=== PATIENT | male | born 1980 | race Caucasian/White ===

== ENCOUNTER 2023-05-04 16:08 | Observation (INO) ==
[2023-05-04 16:34] LABS: ABS Basophils 0.1 10^3/uL (0.0-0.1); ABS Eosinophils 0.3 10^3/uL (0.0-0.5); ABS Lymphocytes 3.5 10^3/uL (1.0-4.8); ABS Monocytes 1.1 10^3/uL (0.0-1.1); ABS Neutrophils 6.7 10^3/uL (1.5-7.6); ABS Nucleated RBC 0.01 10^3/ul; Eosinophil % 2.2 %; Hematocrit 44.7 % (38-53); Hemoglobin 15.4 g/dL (13.2-16.3); Lymphocyte % 29.7 %; Mean Corpuscular Hemoglobin 34.4 pg (27-33); Mean Corpuscular Hgb Conc 34.4 g/dL (31-36); Mean Corpuscular Volume 99.9 fL (80-97); Platelet Count 233 10^3/uL (150-450); Red Blood Count 4.47 10^6/uL (4.06-5.63); Red Cell Distribution Width 13.1 % (12-17); White Blood Count 11.6 10^3/uL (3.6-10.2)
[2023-05-04 16:47] LABS: INR 0.95 (0.83-1.13)
[2023-05-04 17:45] LABS: Albumin 4.4 g/dL (3.2-5.2); Albumin/Globulin Ratio 1.8 (1-3); Calcium 9.3 mg/dL (8.6-10.3); Creatinine, Serum 1.01 mg/dL (0.67-1.17); Globulin 2.5 g/dL (2-4); Potassium 4.2 mmol/L (3.5-5.0); Total Bilirubin 0.5 mg/dL (0.2-1.0); Total Protein 6.9 g/dL (6.4-8.9); eGFR CKD-EPI 94.6 (>60)
[2023-05-04 17:57] LABS: High Sensitivity Troponin 1 Hr 19 pg/mL (<20)
[2023-05-04] MEDS: Prochlorperazine 5 mg/ml 2 ml VIAL (10 mg) IV ONE (22:05)
[2023-05-04] MEDS: Dexamethasone IV 4 MG/ML VIAL 1 ml VIAL IV SLOW PU ONE (22:13)
[2023-05-04] MEDS: NS 0.9% 1000 ml BAG 1,000 ML IV ONE (22:13)
[2023-05-04] MEDS: Iohexol 350 (CONTRAST) 500 ML MDV IV ONE (23:00)
[2023-05-05] MEDS: Acetaminophen IV 1 GM/100ML 1,000 MG/100 ML BAG IV ONE (02:19)
[2023-05-05] MEDS: Magnesium Sulfate 2 gm BAG 2 GM/50 ML BAG IVPB ONE (02:38)
[2023-05-05] MEDS: Enoxaparin 40 MG/0.4 ML SYR SUBCUT SCH (06:08)
[2023-05-05 06:13] LABS: ABS Lymphocytes 0.9 10^3/uL (1.0-4.8); ABS Monocytes 0.1 10^3/uL (0.0-1.1); ABS Neutrophils 6.3 10^3/uL (1.5-7.6); Eosinophil % 0.1 %; Hematocrit 45.4 % (38-53); Hemoglobin 15.9 g/dL (13.2-16.3); Lymphocyte % 12.2 %; Mean Corpuscular Hemoglobin 35.3 pg (27-33); Mean Corpuscular Hgb Conc 35.1 g/dL (31-36); Mean Corpuscular Volume 100.7 fL (80-97); Mean Platelet Volume 8.1 fL (7.5-11.2); Platelet Count 224 10^3/uL (150-450); Red Blood Count 4.51 10^6/uL (4.06-5.63); White Blood Count 7.3 10^3/uL (3.6-10.2)
[2023-05-05] MEDS ORDERED: Nicotine GUM 4MG FRUIT FLAVOR PO PRN (06:29)
[2023-05-05 06:31] LABS: Calcium 9.5 mg/dL (8.6-10.3); Creatinine, Serum 0.96 mg/dL (0.67-1.17); HDL Cholesterol 52.6 mg/dL; Magnesium 2.5 mg/dL (1.9-2.7); Potassium 4.6 mmol/L (3.5-5.0); eGFR CKD-EPI 100.6 (>60)
[2023-05-05 06:46] LABS: TSH Ultra Thyroid Stim Horm 0.6 mcIU/mL (0.34-5.60)
[2023-05-05] MEDS: Metoclopramide 5 MG/ML VIAL (10 mg) IV SLOW PU ONE (08:52)
[2023-05-05] MEDS: Amphetamine MIXED SALT 10mgTAB PO SCH (08:52)
[2023-05-05] MEDS ORDERED: Aspirin EC 81 mg TAB.EC (enteric coated) PO SCH (09:00)
[2023-05-05 09:25] LABS: C Reactive Protein 7.36 mg/L (<8.01)
[2023-05-05] MEDS ORDERED: Sulfur Hexaflouride MICROSPHR 25 MG VIAL ONE (09:57)
[2023-05-05] MEDS: Gadoteridol (CONTRAST) 279.3 MG/ML 10 ML IV ONE (10:51)
[2023-05-05 12:26] LABS: Erythrocyte Sed Rate 5 mm/Hr (0-14)
[2023-05-06 05:50] LABS: Calcium 8.9 mg/dL (8.6-10.3); Creatinine, Serum 0.98 mg/dL (0.67-1.17); Magnesium 2.2 mg/dL (1.9-2.7); Potassium 4.3 mmol/L (3.5-5.0); eGFR CKD-EPI 98.1 (>60)
[2023-05-06] MEDS: Nicotine Lozenge mini 4 MG LOZNG.MINI MT PRN (08:21)
[2023-05-06 10:36] VITALS: BP 121/93
[2023-05-08 10:51] LABS: Heparin Anti-Xa Activity 0.15 IU/mL
[2023-05-08 11:11] LABS: Act Protein C Resist Ratio 2.8 (>or=2.3)
[2023-05-08 13:20] LABS: Coagulation Factor V Assay 128 % (70 - 165)
[2023-05-08 17:02] LABS: Protein S Activity, P >150 % (65-150)
[2023-05-09 10:16] LABS: Protein C Activity 142 % (70 - 150)
[2023-05-09 12:21] LABS: Prothrombin 20210 Mutation Negative (Negative)
[2023-05-10 12:28] LABS: Factor V Leiden Mutation Negative (Negative)
== END 2023-05-06 12:00 | disposition home or self-care (01) ==
LOC: EDHOLD 16:08 → ED 16:08 → SUATTDRO 05-05 04:23 → EDHOLD 05-05 04:45 → MEDTELE 05-05 05:19
PROVIDERS: ADMIT Internal Medicine; ATTEND Hospitalist

== ENCOUNTER 2023-05-24 10:34 | Inpatient (IN) ==
[2023-05-24 11:00] LABS: Hemoglobin 17.3 g/dL (13.2-16.3); Mean Corpuscular Hemoglobin 34.4 pg (27-33); Mean Corpuscular Hgb Conc 35.4 g/dL (31-36); Mean Corpuscular Volume 97.2 fL (80-97); Mean Platelet Volume 8.1 fL (7.5-11.2); Platelet Count 225 10^3/uL (150-450); Red Blood Count 5.04 10^6/uL (4.06-5.63); Red Cell Distribution Width 12.8 % (12-17); White Blood Count 15.5 10^3/uL (3.6-10.2)
[2023-05-24 11:06] LABS: INR 0.95 (0.83-1.13)
[2023-05-24 11:25] LABS: ABS Basophils 0.2 10^3/uL (0.0-0.1); ABS Eosinophils 0.1 10^3/uL (0.0-0.5); ABS Lymphocytes 2.5 10^3/uL (1.0-4.8); ABS Monocytes 1.6 10^3/uL (0.0-1.1); ABS Neutrophils 11.1 10^3/uL (1.5-7.6); ABS Nucleated RBC 0.05 10^3/ul; Eosinophil % 0.7 %; High Sens Troponin Baseline 9 pg/mL (<20); Lymphocyte % 16.3 %; Nucleated Red Blood Cells % 0.3 %/100WBC (0.0-0.8)
[2023-05-24 11:31] LABS: ALT 262 U/L (7-52); Albumin/Globulin Ratio 1.5 (1-3); Alkaline Phosphatase 115 U/L (35-149); Anion Gap 11 mmol/L (2-16); Blood Urea Nitrogen 17 mg/dL (6-24); CO2 Carbon Dioxide 22 mmol/L (22-32); Chloride 95 mmol/L (101-111); Creatinine, Serum 0.86 mg/dL (0.67-1.17); Globulin 2.7 g/dL (2-4); Glucose 103 mg/dL (70-100); Sodium 128 mmol/L (135-145); Total Bilirubin 1.4 mg/dL (0.2-1.0); Total Protein 6.7 g/dL (6.4-8.9); eGFR CKD-EPI 110.2 (>60)
[2023-05-24 13:19] LABS: High Sensitivity Troponin 1 Hr 11 pg/mL (<20)
[2023-05-24] MEDS: NS 0.9% 500 ml BAG 500 ML IV ONE (14:45)
[2023-05-24 15:22] LABS: High Sensitivity Troponin 3 Hr 9 pg/mL (<20)
[2023-05-24 15:27] LABS: Lipase 706 U/L (11.0-82.0)
[2023-05-24 15:46] LABS: Anion Gap 8 mmol/L (2-16); CO2 Carbon Dioxide 27 mmol/L (22-32); Chloride 95 mmol/L (101-111); Creatine Kinase 50 U/L (10-223); Sodium 130 mmol/L (135-145)
[2023-05-24] MEDS: NS 0.9% 1000 ml BAG 1,000 ML IV SCH (15:57)
[2023-05-24] MEDS ORDERED: LORazepam 2 mg VIAL 1 ml IV PUSH ONE (17:10)
[2023-05-24] MEDS ORDERED: Lorazepam PYXIS KEY PRN (17:10)
[2023-05-24] MEDS: Labetalol IV 5 MG/ML 20 ml VIAL IV PUSH ONE (17:33)
[2023-05-24] MEDS: fentaNYL 100 mcg/2 ml 50 MCG/ML VIAL IV SLOW PU ONE (17:34)
[2023-05-24] MEDS: LORazepam 2 mg VIAL 1 ml IV PUSH ONE (17:58)
[2023-05-24] MEDS ORDERED: LORazepam 2 MG/ML 1 mL Syringe IV ONE (18:00)
[2023-05-24] MEDS ORDERED: Naloxone Nasal Spray 4 MG/0.1 ML NASAL.SPR INTRANASAL PRN (23:45)
[2023-05-25] MEDS: Enoxaparin 40 MG/0.4 ML SYR SUBCUT SCH (00:06)
[2023-05-25 01:07] LABS: Cholesterol 383 mg/dL; HDL Cholesterol 25.5 mg/dL; Triglycerides 1786 mg/dL
[2023-05-25 01:22] LABS: LDL Cholesterol Direct 51 mg/dL
[2023-05-25 01:33] LABS: Albumin 3.6 g/dL (3.2-5.2); Albumin/Globulin Ratio 1.5 (1-3); Calcium 8.5 mg/dL (8.6-10.3); Creatinine, Serum 0.97 mg/dL (0.67-1.17); Globulin 2.4 g/dL (2-4); Potassium 3.9 mmol/L (3.5-5.0); Total Bilirubin 1.8 mg/dL (0.2-1.0); eGFR CKD-EPI 99.3 (>60)
[2023-05-25] MEDS ORDERED: Dextrose 50% Syringe 50 ml 25 GM/50 ML SYRINGE IV PUSH PRN (04:07)
[2023-05-25 04:11] LABS: TSH Ultra Thyroid Stim Horm 1.35 mcIU/mL (0.34-5.60)
[2023-05-25] MEDS: D10W 1000 ml BAG 1,000 ML IV SCH ×3 (05:13→08:12)
[2023-05-25] MEDS: Insulin Infusion 100unit/100mL 100 UNIT/100 ML BAG IV SCH ×2 (05:13→08:11)
[2023-05-25] MEDS: HYDROmorphone 1 MG/1 ML SYRINGE IV PRN (05:39)
[2023-05-25] MEDS: Lactated Ringers 1000 ml BAG 1,000 ML IV SCH ×4 (05:41→23:07)
[2023-05-25 07:10] LABS: Potassium 4.1 mmol/L (3.5-5.0)
[2023-05-25 07:11] LABS: Calcium 8.8 mg/dL (8.6-10.3); Creatinine, Serum 1.06 mg/dL (0.67-1.17); eGFR CKD-EPI 89.3 (>60)
[2023-05-25 09:07] LABS: Hematocrit 43.2 % (38-53); Hemoglobin 15.1 g/dL (13.2-16.3); Mean Corpuscular Hemoglobin 34.6 pg (27-33); Mean Platelet Volume 8.5 fL (7.5-11.2); Platelet Count 167 10^3/uL (150-450); Red Blood Count 4.36 10^6/uL (4.06-5.63); Red Cell Distribution Width 12.8 % (12-17); White Blood Count 13.5 10^3/uL (3.6-10.2)
[2023-05-25 09:11] LABS: ABS Basophils 0.1 10^3/uL (0.0-0.1); ABS Eosinophils 0.1 10^3/uL (0.0-0.5); ABS Lymphocytes 2.2 10^3/uL (1.0-4.8); ABS Monocytes 1.7 10^3/uL (0.0-1.1); ABS Neutrophils 9.3 10^3/uL (1.5-7.6); Eosinophil % 0.9 %; Lymphocyte % 16.7 %
[2023-05-25 09:20] LABS: Calcium 8.5 mg/dL (8.6-10.3); Creatinine, Serum 1.08 mg/dL (0.67-1.17); Potassium 4.1 mmol/L (3.5-5.0); eGFR CKD-EPI 87.3 (>60)
[2023-05-25] MEDS: Dextrose 50% Syringe 50 ml 25 GM/50 ML SYRINGE IV PUSH ONE (09:42)
[2023-05-25] MEDS: Multivitamins/Minerals TAB PO SCH (09:51)
[2023-05-25] MEDS: Aspirin EC 81 mg TAB.EC (enteric coated) PO SCH (09:51)
[2023-05-25] MEDS ORDERED: Nicotine Lozenge mini 4 MG LOZNG.MINI MT PRN (10:23)
[2023-05-25] MEDS: Nicotine PATCH 14 MG/24 HR PATCH TRANSDERM SCH (11:29)
[2023-05-25] MEDS: Iohexol 350 (CONTRAST) 500 ML MDV IV ONE (13:14)
[2023-05-25 15:54] LABS: UR Microalbumin (mg/L) < 15.0 mg/L; Urine Creatinine 191.74 mg/dL
[2023-05-26 00:58] LABS: Albumin 3.4 g/dL (3.2-5.2); Albumin/Globulin Ratio 1.5 (1-3); C Reactive Protein 215.48 mg/L (<8.01); Calcium 8.3 mg/dL (8.6-10.3); Creatinine, Serum 1.04 mg/dL (0.67-1.17); Globulin 2.2 g/dL (2-4); Potassium 3.6 mmol/L (3.5-5.0); Total Bilirubin 1.9 mg/dL (0.2-1.0); Total Protein 5.6 g/dL (6.4-8.9); eGFR CKD-EPI 91.4 (>60)
[2023-05-26 01:05] LABS: Urine Appearance Clear; Urine Bilirubin Negative (Negative); Urine Blood Negative (Negative); Urine Color Yellow; Urine Glucose Negative (Negative); Urine Ketones Negative (Negative); Urine Nitrite Negative (Negative); Urine Protein Trace (Negative); Urine Specific Gravity 1.026 (1.002-1.030); Urine Urobilinogen 1+ (Negative)
[2023-05-26 06:10] LABS: ABS Basophils 0.1 10^3/uL (0.0-0.1); ABS Eosinophils 0.3 10^3/uL (0.0-0.5); ABS Monocytes 1.4 10^3/uL (0.0-1.1); ABS Neutrophils 10.1 10^3/uL (1.5-7.6); Eosinophil % 2.1 %; Hematocrit 40.7 % (38-53); Hemoglobin 13.9 g/dL (13.2-16.3); Lymphocyte % 14.5 %; Mean Corpuscular Hemoglobin 34.2 pg (27-33); Mean Corpuscular Hgb Conc 34.1 g/dL (31-36); Mean Corpuscular Volume 100.3 fL (80-97); Mean Platelet Volume 8.7 fL (7.5-11.2); Platelet Count 145 10^3/uL (150-450); Red Blood Count 4.06 10^6/uL (4.06-5.63); Red Cell Distribution Width 13.1 % (12-17); White Blood Count 13.9 10^3/uL (3.6-10.2)
[2023-05-26 06:41] LABS: Calcium 8.6 mg/dL (8.6-10.3); Creatinine, Serum 1.01 mg/dL (0.67-1.17); Magnesium 1.8 mg/dL (1.9-2.7); Potassium 4.1 mmol/L (3.5-5.0); eGFR CKD-EPI 94.6 (>60)
[2023-05-26] MEDS: Lactated Ringers 1000 ml BAG 1,000 ML IV SCH (11:12)
[2023-05-26] MEDS: cefTRIAXone 1 gm/50 mL D5W 1 GM/50 ML BAG IV SCH (17:00)
[2023-05-27 07:16] LABS: ABS Basophils 0.1 10^3/uL (0.0-0.1); ABS Eosinophils 0.3 10^3/uL (0.0-0.5); ABS Lymphocytes 1.6 10^3/uL (1.0-4.8); ABS Monocytes 1.5 10^3/uL (0.0-1.1); ABS Neutrophils 9.7 10^3/uL (1.5-7.6); ABS Nucleated RBC 0.01 10^3/ul; Eosinophil % 2.6 %; Hematocrit 40.8 % (38-53); Hemoglobin 14.1 g/dL (13.2-16.3); Lymphocyte % 12.2 %; Mean Corpuscular Hemoglobin 34.6 pg (27-33); Mean Corpuscular Hgb Conc 34.6 g/dL (31-36); Mean Corpuscular Volume 100.1 fL (80-97); Mean Platelet Volume 8.8 fL (7.5-11.2); Nucleated Red Blood Cells % 0.1 %/100WBC (0.0-0.8); Platelet Count 148 10^3/uL (150-450); Red Blood Count 4.07 10^6/uL (4.06-5.63); Red Cell Distribution Width 12.8 % (12-17); White Blood Count 13.2 10^3/uL (3.6-10.2)
[2023-05-27 07:26] LABS: Calcium 8.6 mg/dL (8.6-10.3); Creatinine, Serum 0.88 mg/dL (0.67-1.17); Magnesium 2.1 mg/dL (1.9-2.7); Potassium 3.8 mmol/L (3.5-5.0); eGFR CKD-EPI 109.4 (>60)
[2023-05-27 08:21] LABS: Albumin 3.4 g/dL (3.2-5.2); Albumin/Globulin Ratio 1.4 (1-3); Direct Bilirubin 0.8 mg/dL (0.03-0.18); Globulin 2.5 g/dL (2-4); Indirect Bilirubin 1.1 mg/dL (0.3-1.0); Total Bilirubin 1.9 mg/dL (0.2-1.0); Total Protein 5.9 g/dL (6.4-8.9)
[2023-05-27] MEDS: Azithromycin 500 mg/250 ml NS 500 MG/250 ML BAG IVPB SCH (10:20)
[2023-05-28 06:44] LABS: Hematocrit 36.1 % (38-53); Hemoglobin 12.2 g/dL (13.2-16.3); Mean Corpuscular Hgb Conc 33.7 g/dL (31-36); Mean Corpuscular Volume 100.8 fL (80-97); Mean Platelet Volume 8.9 fL (7.5-11.2); Platelet Count 161 10^3/uL (150-450); Red Blood Count 3.58 10^6/uL (4.06-5.63); Red Cell Distribution Width 12.5 % (12-17); White Blood Count 12.9 10^3/uL (3.6-10.2)
[2023-05-28 06:48] LABS: ABS Basophils 0.1 10^3/uL (0.0-0.1); ABS Eosinophils 0.6 10^3/uL (0.0-0.5); ABS Lymphocytes 2.7 10^3/uL (1.0-4.8); ABS Monocytes 1.8 10^3/uL (0.0-1.1); ABS Neutrophils 7.8 10^3/uL (1.5-7.6); Eosinophil % 4.3 %; Lymphocyte % 21.1 %
[2023-05-28 06:59] LABS: Calcium 8.3 mg/dL (8.6-10.3); Creatinine, Serum 0.83 mg/dL (0.67-1.17); Potassium 3.8 mmol/L (3.5-5.0); eGFR CKD-EPI 111.4 (>60)
[2023-05-28] MEDS ORDERED: Magnesium Hydroxide LIQ 30 ML UDC PO PRN (08:37)
[2023-05-28] MEDS: HYDROmorphone 1 MG/1 ML SYRINGE IV PRN (16:41)
[2023-05-28] MEDS: Senna TAB 8.6 mg TAB PO SCH (20:14)
[2023-05-29 05:45] LABS: Albumin 3.3 g/dL (3.2-5.2); Albumin/Globulin Ratio 1.3 (1-3); Calcium 8.7 mg/dL (8.6-10.3); Creatinine, Serum 0.94 mg/dL (0.67-1.17); Globulin 2.5 g/dL (2-4); Potassium 3.9 mmol/L (3.5-5.0); Total Bilirubin 0.8 mg/dL (0.2-1.0); Total Protein 5.8 g/dL (6.4-8.9); eGFR CKD-EPI 103.2 (>60)
[2023-05-29 08:23] LABS: Hematocrit 36.8 % (38-53); Hemoglobin 12.4 g/dL (13.2-16.3); Mean Corpuscular Hemoglobin 34.2 pg (27-33); Mean Corpuscular Hgb Conc 33.8 g/dL (31-36); Mean Corpuscular Volume 101.2 fL (80-97); Mean Platelet Volume 9.4 fL (7.5-11.2); Platelet Count 178 10^3/uL (150-450); Red Blood Count 3.64 10^6/uL (4.06-5.63); Red Cell Distribution Width 12.6 % (12-17); White Blood Count 12.4 10^3/uL (3.6-10.2)
[2023-05-29 08:35] LABS: ABS Basophils 0.1 10^3/uL (0.0-0.1); ABS Eosinophils 0.4 10^3/uL (0.0-0.5); ABS Lymphocytes 2.5 10^3/uL (1.0-4.8); ABS Monocytes 1.9 10^3/uL (0.0-1.1); ABS Neutrophils 7.5 10^3/uL (1.5-7.6); ABS Nucleated RBC 0.01 10^3/ul; Eosinophil % 3.5 %; Lymphocyte % 19.9 %; Nucleated Red Blood Cells % 0.1 %/100WBC (0.0-0.8)
[2023-05-29] MEDS: Iohexol 300 (CONTRAST) 10 ML SDV IV ONE (11:51)
[2023-05-29] MEDS: Lactated Ringers 1000 ml BAG 1,000 ML IV SCH (14:39)
[2023-05-29] MEDS ORDERED: oxyCODONE 5 mg/5 ml ORAL.SOLN UDC PO PRN (14:44)
[2023-05-29] MEDS: cefTRIAXone 1 GM Q24H (ADVAN) IVPB SCH (17:21)
[2023-05-29] MEDS: HYDROmorphone 1 MG/1 ML SYRINGE IV PRN (21:02)
[2023-05-30 06:10] LABS: Hematocrit 36.9 % (38-53); Hemoglobin 12.7 g/dL (13.2-16.3); Mean Corpuscular Hemoglobin 34.3 pg (27-33); Mean Corpuscular Hgb Conc 34.5 g/dL (31-36); Mean Corpuscular Volume 99.4 fL (80-97); Mean Platelet Volume 8.6 fL (7.5-11.2); Platelet Count 229 10^3/uL (150-450); Red Blood Count 3.72 10^6/uL (4.06-5.63); Red Cell Distribution Width 12.4 % (12-17); White Blood Count 14.7 10^3/uL (3.6-10.2)
[2023-05-30 06:45] LABS: Calcium 9.1 mg/dL (8.6-10.3); Creatinine, Serum 1.08 mg/dL (0.67-1.17); Potassium 4.5 mmol/L (3.5-5.0); eGFR CKD-EPI 87.3 (>60)
[2023-05-30 07:31] LABS: ABS Basophils 0.2 10^3/uL (0.0-0.1); ABS Eosinophils 0.5 10^3/uL (0.0-0.5); ABS Lymphocytes 3.1 10^3/uL (1.0-4.8); ABS Monocytes 2.2 10^3/uL (0.0-1.1); ABS Neutrophils 8.7 10^3/uL (1.5-7.6); ABS Nucleated RBC 0.01 10^3/ul; Eosinophil % 3.5 %; Lymphocyte % 20.9 %; RBC Morphology Normal (Normal)
[2023-05-30] MEDS: cefTRIAXone 1 gm/50 mL D5W 1 GM/50 ML BAG IV SCH (17:20)
[2023-05-31 05:40] VITALS: BP 106/74
[2023-05-31 06:26] LABS: Hematocrit 36.5 % (38-53); Hemoglobin 12.5 g/dL (13.2-16.3); Mean Corpuscular Hgb Conc 34.2 g/dL (31-36); Mean Corpuscular Volume 99.6 fL (80-97); Mean Platelet Volume 8.5 fL (7.5-11.2); Platelet Count 280 10^3/uL (150-450); Red Blood Count 3.67 10^6/uL (4.06-5.63); Red Cell Distribution Width 12.5 % (12-17); White Blood Count 13.4 10^3/uL (3.6-10.2)
[2023-05-31 06:33] LABS: ABS Eosinophils 0.5 10^3/uL (0.0-0.5); ABS Lymphocytes 3.1 10^3/uL (1.0-4.8); ABS Monocytes 1.9 10^3/uL (0.0-1.1); ABS Neutrophils 7.8 10^3/uL (1.5-7.6); ABS Nucleated RBC 0.01 10^3/ul; Eosinophil % 3.4 %; Lymphocyte % 23.5 %
== END 2023-05-31 10:10 | disposition home or self-care (01) | DRG 438 ==
LOC: EDHOLD 10:34 → ED 10:34 → SUATTDRO 23:45 → MEDTELE 05-25 12:39
PROVIDERS: ADMIT Hospitalist; ATTEND Student in an Organized Health Care Education/Training Program